=== PATIENT | male | born 1970 | race Caucasian/White ===

== ENCOUNTER 2018-10-01 21:01 | Emergency (ER) | payer SELFPAY ==
[~2018-10-01] VITALS: Ht 182.9 cm; Wt 113.6 kg
[2018-10-01] MEDS ORDERED: TELM40 PO (21:26)
[2018-10-01] MEDS ORDERED: KETOROLAC TROMETHAMINE 60 MG/2 ML VIAL IM ONE (22:30)
[2018-10-02 00:10] VITALS: BP 131/87
== END 2018-10-02 00:22 | disposition home or self-care (01) ==
LOC: EMS 21:03
DX: S39.012A Strain of muscle, fascia and tendon of lower back, initial encounter (principal); S13.4XXA Sprain of ligaments of cervical spine, initial encounter; I10 Essential (primary) hypertension; F17.210 Nicotine dependence, cigarettes, uncomplicated; V59.9XXA Occupant (driver) (passenger) of pick-up truck or van injured in unspecified traffic accident, initial encounter; Y93.89 Activity, other specified; Y92.89 Other specified places as the place of occurrence of the external cause; Y99.8 Other external cause status
CPT/HCPCS: 72040; 72100; 96372; 99283; J1885

== ENCOUNTER 2022-08-01 21:29 | Emergency (ER) | payer MEDICAID, OTHER ==
[~2022-08-01] VITALS: Ht 182.9 cm; Wt 113.6 kg
[~2022-08-01 21:29] MED LIST: TELM40 PO
[2022-08-01] MEDS ORDERED: HYDROCODONE/ACETAMINOPHEN 5-325 MG TABLET PO ONE (23:00)
[2022-08-01] MEDS ORDERED: KETOROLAC TROMETHAMINE 30 MG/ML VIAL IM ONE (23:00)
[2022-08-02] MEDS ORDERED: CYCL-448 PO (00:06)
[2022-08-02 00:22] VITALS: BP 135/77
== END 2022-08-02 00:52 | disposition home or self-care (01) ==
LOC: EMS 21:31
DX: M54.9 Dorsalgia, unspecified (principal); I10 Essential (primary) hypertension; F17.210 Nicotine dependence, cigarettes, uncomplicated; V99.XXXA Unspecified transport accident, initial encounter; Y93.89 Activity, other specified; Y92.89 Other specified places as the place of occurrence of the external cause; Y99.8 Other external cause status
CPT/HCPCS: 99284; 72040; 72100; 96372; J1885